=== PATIENT | female | born 1955 | race African-American/Black ===

== ENCOUNTER 2018-05-16 13:35 | Inpatient (IN) | payer MEDICAID ==
[~2018-05-16] VITALS: Ht 152.4 cm; Wt 63.5 kg
[~2018-05-16 13:35] MED LIST: ACET-2178 PO; AMLO5TAB4 PO; ARIP20TA2 PO; ASPI-1158 PO; ATOR20TA PO; DOCU-138 PO; FERR-63 PO; LAM25 PO; LEVO50TA PO
[2018-05-16 15:25] LABS: EOSINOPHILS % 2.4 % (0.0-5.0); HEMATOCRIT. 36.4 % (36.0-48.0); HEMOGLOBIN. 12.3 g/dL (12.0-16.0); LYMPHOCYTES % 46.5 % (20.0-50.0); MEAN CORPUSCULAR HEMOGLOBIN 30.1 pg (28.0-32.0); MEAN CORPUSCULAR VOLUME 88.8 fL (81.0-99.0); MONOCYTES % 4.4 % (2.0-8.0); NEUTROPHILS % 45.7 % (40.0-76.0); PLATELET 341 x1000/uL (130-400); RED CELL DISTRIBUTION WIDTH 13.9 % (11.6-14.6)
[2018-05-16 15:27] LABS: CHLORIDE 106 mEq/L (98-107)
[2018-05-16 15:29] LABS: INR 1.1; PROTHROMBIN TIME 10.7 sec (9.1-11.1)
[2018-05-16] MEDS ORDERED: SODIUM CHLORIDE 0.9% 1,000 ML IV ONE ×2 (16:01→17:48)
[2018-05-16 17:21] LABS: CLARITY URINE CLOUDY (CLEAR); COLOR URINE YELLOW (YELLOW); KETONES URINE TRACE (NEGATIVE); LEUKOCYTE ESTERASE URINE 2+ (NEGATIVE); NITRITE URINE NEGATIVE (NEGATIVE); OCCULT BLOOD URINE NEGATIVE (NEGATIVE); PROTEIN URINE NEGATIVE (NEGATIVE); SPECIFIC GRAVITY URINE 1.027 (1.005-1.030)
[2018-05-16] MEDS ORDERED: LEVOFLOXACIN 750MG PREMIX 150 ML IV ONE (17:45)
[2018-05-17] VITALS (8 sets, daily range): BP systolic 112–136; BP diastolic 53–65
[2018-05-17] MEDS ORDERED: ACETAMINOPHEN 325MG TABLET PO PRN (02:00)
[2018-05-17] MEDS ORDERED: DEXTROSE 50% WATER 50ML SYRINGE IV PRN (02:00)
[2018-05-17] MEDS: BLOOD SUGAR DIAGNOSTIC STRIP TEST SCH ×4 (05:43→20:56)
[2018-05-17] MEDS: INSULIN LISPRO 100 UNITS/ML SUBCUT SCH ×4 (05:50→20:55)
[2018-05-17] MEDS ORDERED: SODIUM CHLORIDE 0.9% INJ 3ML FLUSH IVF SCH (06:00)
[2018-05-17] MEDS: LEVOTHYROXINE SODIUM 50MCG TABLET PO SCH (08:02)
[2018-05-17] MEDS: ASPIRIN 81MG TABLET PO SCH (08:27)
[2018-05-17] MEDS: AMLODIPINE 5MG TABLET PO SCH (09:00)
[2018-05-17] MEDS ORDERED: ARIPIPRAZOLE 10MG TABLET PO SCH (09:00)
[2018-05-17 16:32] LABS: T4 FREE 1.08 ng/dL (0.76-1.46)
[2018-05-17] MEDS ORDERED: ATORVASTATIN CALCIUM 20MG TABLET PO SCH (21:00)
[2018-05-17] MEDS ORDERED: ENOXAPARIN 40MG/0.4ML SYR SUBCUT SCH (21:00)
[2018-05-17] MEDS ORDERED: LEVOFLOXACIN 250MG TABLET PO SCH (21:00)
[2018-05-17] MEDS ORDERED: LEVOFLOXACIN 500MG TABLET PO SCH (21:00)
[2018-05-17] MEDS ORDERED: DOCUSATE SODIUM 250MG CAPSULE PO SCH (21:00)
[2018-05-17] MEDS ORDERED: LAMOTRIGINE 25MG TABLET PO SCH (21:00)
[2018-05-18] VITALS: BP 128/61
[2018-05-18 04:00] VITALS: BP 133/61
[2018-05-18] MEDS: INSULIN LISPRO 100 UNITS/ML SUBCUT SCH (05:54)
[2018-05-18] MEDS: BLOOD SUGAR DIAGNOSTIC STRIP TEST SCH (05:54)
[2018-05-18] MEDS: LEVOTHYROXINE SODIUM 50MCG TABLET PO SCH (06:24)
[2018-05-18 08:00] VITALS: BP 130/62
[2018-05-18] MEDS: ASPIRIN 81MG TABLET PO SCH (10:24)
[2018-05-18] MEDS: AMLODIPINE 5MG TABLET PO SCH (10:27)
[2018-05-18 10:46] LABS: CHLORIDE 108 mEq/L (98-107)
[2018-05-18 10:47] LABS: BASOPHILS % 0.9 % (0.0-2.0); EOSINOPHILS % 2.7 % (0.0-5.0); HEMATOCRIT. 37.4 % (36.0-48.0); HEMOGLOBIN. 12.6 g/dL (12.0-16.0); LYMPHOCYTES % 44.4 % (20.0-50.0); MEAN CORPUSCULAR VOLUME 88.8 fL (81.0-99.0); MEAN PLATELET VOLUME 8.9 fl (7.4-10.4); MONOCYTES % 8.3 % (2.0-8.0); NEUTROPHILS % 43.7 % (40.0-76.0); PLATELET 228 x1000/uL (130-400); RED BLOOD CELL COUNT 4.22 mill/uL (4.2-5.4); RED CELL DISTRIBUTION WIDTH 13.6 % (11.6-14.6)
[2018-05-18 10:51] LABS: PHOSPHORUS 3.7 mg/dL (2.5-4.9)
[2018-05-18] MEDS ORDERED: LACTULOSE 20G/30ML UDC PO SCH (14:00)
[2018-05-18 14:57] LABS: *AMPHETAMINES SCREEN URINE NEGATIVE (NEGATIVE); *BARBITURATES SCREEN URINE NEGATIVE (NEGATIVE); *BENZODIAZEPINES SCREEN URINE NEGATIVE (NEGATIVE); *COCAINE SCREEN URINE NEGATIVE (NEGATIVE); METHADONE URINE SCREEN NEGATIVE (NEGATIVE)
[2018-05-18 14:59] LABS: CANNABINOID URINE SCREEN NEGATIVE (NEGATIVE); OPIATES URINE SCREEN NEGATIVE (NEGATIVE); PHENCYCLIDINE URINE SCREEN NEGATIVE (NEGATIVE)
== END 2018-05-18 11:45 | disposition left against medical advice (07) | DRG 720 ==
LOC: ER 14:21 → 8WST 18:17 → ENRESERV 21:56
PROVIDERS: ADMIT Internal Medicine; ATTEND Internal Medicine
DX: A41.9 Sepsis, unspecified organism (principal); E87.2 Acidosis; K56.7 Ileus, unspecified; F03.90 Unspecified dementia, unspecified severity, without behavioral disturbance, psychotic disturbance, mood disturbance, and anxiety; E11.9 Type 2 diabetes mellitus without complications; E66.9 Obesity, unspecified; N39.0 Urinary tract infection, site not specified; F17.210 Nicotine dependence, cigarettes, uncomplicated; F32.9 Major depressive disorder, single episode, unspecified; K59.00 Constipation, unspecified; E03.9 Hypothyroidism, unspecified; E87.6 Hypokalemia; I10 Essential (primary) hypertension; J44.9 Chronic obstructive pulmonary disease, unspecified; K21.9 Gastro-esophageal reflux disease without esophagitis; Z79.82 Long term (current) use of aspirin; Z79.899 Other long term (current) drug therapy; Z86.73 Personal history of transient ischemic attack (TIA), and cerebral infarction without residual deficits; Z88.8 Allergy status to other drugs, medicaments and biological substances; Z53.21 Procedure and treatment not carried out due to patient leaving prior to being seen by health care provider; Z68.27 Body mass index [BMI] 27.0-27.9, adult
CPT/HCPCS: 36415; 71045; 74018; 80048; 80305; 82962; 83036; 83605; 83735; 84100; 84145; 84439; 84443; 84484; 87077; 87186; 93005; 93306; 96360; 97162; 99285; J1650; J1956; J7030

== ENCOUNTER 2018-05-18 13:57 | Emergency (ER) | payer MEDICAID ==
[~2018-05-18] VITALS: Ht 152.4 cm; Wt 64.0 kg
[2018-05-18] MEDS ORDERED: ARIPIPRAZOLE 10MG TABLET PO ONE (15:30)
[2018-05-18 18:33] VITALS: BP 102/47
== END 2018-05-18 18:15 | disposition home or self-care (01) ==
LOC: ER 13:57
DX: R00.1 Bradycardia, unspecified (principal); E11.9 Type 2 diabetes mellitus without complications; I10 Essential (primary) hypertension; F31.9 Bipolar disorder, unspecified; F17.200 Nicotine dependence, unspecified, uncomplicated; Z88.8 Allergy status to other drugs, medicaments and biological substances; Z79.82 Long term (current) use of aspirin; Z86.73 Personal history of transient ischemic attack (TIA), and cerebral infarction without residual deficits
CPT/HCPCS: 82962; 99282

== ENCOUNTER 2021-07-23 13:07 | Inpatient (IN) | payer MEDICARE, MEDICAID ==
[~2021-07-23] VITALS: Ht 162.6 cm; Wt 68.7 kg
[~2021-07-23 13:07] MED LIST changes: -ACET-2178 PO; -ASPI-1158 PO; +ASPI-1406 PO; +TOPUD PO
[2021-07-23] MEDS ORDERED: SODIUM CHLORIDE 0.9% 1,000 ML IV ONE (16:15)
[2021-07-23] MEDS ORDERED: KETOROLAC 30MG/ML VIAL IV STA (16:15)
[2021-07-23] MEDS ORDERED: ONDANSETRON HCL 4MG/2ML INJ IV STA (17:46)
[2021-07-23] MEDS ORDERED: MORPHINE SULFATE 4 MG/ML CPJ (NOT FOR IM USE) IV STA (17:46)
[2021-07-23 18:08] LABS: CLARITY URINE CLEAR (CLEAR); COLOR URINE YELLOW (YELLOW); KETONES URINE TRACE (NEGATIVE); LEUKOCYTE ESTERASE URINE NEGATIVE (NEGATIVE); NITRITE URINE NEGATIVE (NEGATIVE); OCCULT BLOOD URINE NEGATIVE (NEGATIVE); PROTEIN URINE 1+ (NEGATIVE); SPECIFIC GRAVITY URINE 1.031 (1.005-1.030)
[2021-07-23 18:14] LABS: BASOPHILS % 0.6 % (0.0-2.0); EOSINOPHILS % 0.8 % (0.0-5.0); HEMATOCRIT. 38.7 % (36.0-48.0); HEMOGLOBIN. 12.6 g/dL (12.0-16.0); LYMPHOCYTES % 28.8 % (20.0-50.0); MEAN CORPUSCULAR HEMOGLOBIN 28.3 pg (28.0-32.0); MEAN CORPUSCULAR VOLUME 86.8 fL (81.0-99.0); MEAN PLATELET VOLUME 8.9 fl (7.4-10.4); MONOCYTES % 5.4 % (2.0-8.0); NEUTROPHILS % 64.4 % (40.0-76.0); PLATELET 267 x1000/uL (130-400); RED BLOOD CELL COUNT 4.46 mill/uL (4.2-5.4); RED CELL DISTRIBUTION WIDTH 14.4 % (11.6-14.6)
[2021-07-23 18:17] LABS: CHLORIDE 106 mEq/L (98-107)
[2021-07-24 06:16] VITALS: BP 129/61
[2021-07-24 08:00] VITALS: BP 143/61
[2021-07-24] MEDS ORDERED: DEXTROSE 50% WATER 50ML SYRINGE IV PRN ×2 (08:30→15:15)
[2021-07-24] MEDS ORDERED: HYDROCODONE/ACETAMINOPHEN 5/325MG TABLET PO PRN (08:30)
[2021-07-24] MEDS ORDERED: ENOXAPARIN 40MG/0.4ML SYR SUBCUT SCH (09:00)
[2021-07-24] MEDS ORDERED: QUET50TA PO (09:13)
[2021-07-24] MEDS ORDERED: BLOOD SUGAR DIAGNOSTIC STRIP TEST SCH (11:45)
[2021-07-24 12:00] VITALS: BP 153/68
[2021-07-24] MEDS: INSULIN LISPRO 100 UNITS/ML SUBCUT SCH ×3 (12:07→21:00)
[2021-07-24] MEDS ORDERED: CLONIDINE 0.1MG TABLET PO PRN (15:15)
[2021-07-24] MEDS ORDERED: MAGNESIUM/ALUMINUM HYDROXIDE/SIMETHICONE 30ML UDC PO PRN (15:15)
[2021-07-24] MEDS ORDERED: ACETAMINOPHEN 325MG TABLET PO PRN (15:15)
[2021-07-24] MEDS ORDERED: ONDANSETRON HCL 4MG/2ML INJ IV PRN (15:15)
[2021-07-24] MEDS: AMLODIPINE 5MG TABLET PO SCH (15:39)
[2021-07-24 16:00] VITALS: BP 149/58
[2021-07-24] MEDS: QUETIAPINE FUMARATE 50MG TABLET PO SCH (17:29)
[2021-07-24] MEDS: LAMOTRIGINE 25MG TABLET PO SCH (17:29)
[2021-07-24] MEDS: ENOXAPARIN 40MG/0.4ML SYR SUBCUT SCH (17:32)
[2021-07-24] MEDS: BLOOD SUGAR DIAGNOSTIC STRIP TEST SCH ×2 (17:32→21:00)
[2021-07-24 20:00] VITALS: BP 108/63
[2021-07-24] MEDS: ATORVASTATIN CALCIUM 20MG TABLET PO SCH (23:14)
[2021-07-24] MEDS: DOCUSATE SODIUM 250MG CAPSULE PO SCH (23:15)
[2021-07-25] VITALS: BP 140/58
[2021-07-25 04:00] VITALS: BP 144/60
[2021-07-25] MEDS: BLOOD SUGAR DIAGNOSTIC STRIP TEST SCH ×4 (07:26→20:14)
[2021-07-25] MEDS: OMEPRAZOLE 20MG CAPSULE EXTENDED RELEASE PO SCH (07:36)
[2021-07-25] MEDS: LEVOTHYROXINE SODIUM 50MCG TABLET PO SCH (07:36)
[2021-07-25 07:48] LABS: BASOPHILS % 0.7 % (0.0-2.0); EOSINOPHILS % 2.2 % (0.0-5.0); HEMATOCRIT. 37.3 % (36.0-48.0); HEMOGLOBIN. 12.4 g/dL (12.0-16.0); LYMPHOCYTES % 34.5 % (20.0-50.0); MEAN CORPUSCULAR HEMOGLOBIN 28.8 pg (28.0-32.0); MEAN CORPUSCULAR VOLUME 86.6 fL (81.0-99.0); MEAN PLATELET VOLUME 8.8 fl (7.4-10.4); MONOCYTES % 10.6 % (2.0-8.0); PLATELET 246 x1000/uL (130-400); RED BLOOD CELL COUNT 4.31 mill/uL (4.2-5.4); RED CELL DISTRIBUTION WIDTH 13.8 % (11.6-14.6)
[2021-07-25] MEDS: INSULIN LISPRO 100 UNITS/ML SUBCUT SCH ×4 (07:50→20:20)
[2021-07-25 07:54] LABS: CHLORIDE 107 mEq/L (98-107)
[2021-07-25 08:00] VITALS: BP 155/66
[2021-07-25 08:02] LABS: LDL CHOLESTEROL 83 mg/dL (5-100); PHOSPHORUS 2.8 mg/dL (2.5-4.9)
[2021-07-25 08:04] LABS: HDL CHOLESTEROL 59 mg/dL (40-59); T4 FREE 0.88 ng/dL (0.76-1.46)
[2021-07-25] MEDS: AMLODIPINE 5MG TABLET PO SCH (08:35)
[2021-07-25] MEDS: LAMOTRIGINE 25MG TABLET PO SCH ×2 (08:35→17:40)
[2021-07-25] MEDS: ASPIRIN 81MG EC TABLET PO SCH (08:36)
[2021-07-25] MEDS: QUETIAPINE FUMARATE 50MG TABLET PO SCH ×2 (08:36→17:40)
[2021-07-25 12:00] VITALS: BP_SYST 107; BP_SYST 125; BP_DIAS 61; BP_DIAS 64
[2021-07-25] MEDS ORDERED: NALOXONE HCL 0.4MG/ML VIAL IV PRN (14:30)
[2021-07-25 16:00] VITALS: BP 125/64
[2021-07-25] MEDS: ENOXAPARIN 40MG/0.4ML SYR SUBCUT SCH (17:41)
[2021-07-25 20:00] VITALS: BP 100/56
[2021-07-25] MEDS: DOCUSATE SODIUM 250MG CAPSULE PO SCH (20:14)
[2021-07-25] MEDS: ATORVASTATIN CALCIUM 20MG TABLET PO SCH (20:14)
[2021-07-26] VITALS: BP 128/87
[2021-07-26 04:00] VITALS: BP 129/52
[2021-07-26] MEDS: OMEPRAZOLE 20MG CAPSULE EXTENDED RELEASE PO SCH (06:26)
[2021-07-26] MEDS: LEVOTHYROXINE SODIUM 50MCG TABLET PO SCH (06:26)
[2021-07-26] MEDS: BLOOD SUGAR DIAGNOSTIC STRIP TEST SCH ×4 (06:26→20:37)
[2021-07-26] MEDS: INSULIN LISPRO 100 UNITS/ML SUBCUT SCH ×4 (07:50→20:52)
[2021-07-26 08:00] VITALS: BP 127/62
[2021-07-26] MEDS: ASPIRIN 81MG EC TABLET PO SCH (09:35)
[2021-07-26] MEDS: QUETIAPINE FUMARATE 50MG TABLET PO SCH ×2 (09:35→18:13)
[2021-07-26] MEDS: LAMOTRIGINE 25MG TABLET PO SCH ×2 (09:35→18:13)
[2021-07-26] MEDS: AMLODIPINE 5MG TABLET PO SCH (09:36)
[2021-07-26 12:00] VITALS: BP 120/54
[2021-07-26 16:00] VITALS: BP 118/55
[2021-07-26] MEDS: ENOXAPARIN 40MG/0.4ML SYR SUBCUT SCH (18:14)
[2021-07-26 20:00] VITALS: BP 102/55
[2021-07-26] MEDS: ATORVASTATIN CALCIUM 20MG TABLET PO SCH (20:37)
[2021-07-26] MEDS: DOCUSATE SODIUM 250MG CAPSULE PO SCH (20:37)
[2021-07-27] VITALS: BP 106/53
[2021-07-27 04:00] VITALS: BP 101/56
[2021-07-27] MEDS: OMEPRAZOLE 20MG CAPSULE EXTENDED RELEASE PO SCH (06:25)
[2021-07-27] MEDS: LEVOTHYROXINE SODIUM 50MCG TABLET PO SCH (06:25)
[2021-07-27] MEDS: BLOOD SUGAR DIAGNOSTIC STRIP TEST SCH ×4 (06:25→20:38)
[2021-07-27] MEDS: INSULIN LISPRO 100 UNITS/ML SUBCUT SCH ×4 (07:26→20:39)
[2021-07-27 08:00] VITALS: BP 119/53
[2021-07-27] MEDS: ASPIRIN 81MG EC TABLET PO SCH (08:32)
[2021-07-27] MEDS: LAMOTRIGINE 25MG TABLET PO SCH ×3 (08:32→16:48)
[2021-07-27] MEDS: AMLODIPINE 5MG TABLET PO SCH (08:32)
[2021-07-27] MEDS: QUETIAPINE FUMARATE 50MG TABLET PO SCH ×3 (08:32→16:48)
[2021-07-27 12:00] VITALS: BP 113/53
[2021-07-27 16:00] VITALS: BP 104/55
[2021-07-27] MEDS: ENOXAPARIN 40MG/0.4ML SYR SUBCUT SCH (16:39)
[2021-07-27 20:00] VITALS: BP 120/60
[2021-07-27] MEDS: ATORVASTATIN CALCIUM 20MG TABLET PO SCH (20:39)
[2021-07-27] MEDS: DOCUSATE SODIUM 250MG CAPSULE PO SCH (20:45)
[2021-07-28] VITALS: BP 130/59
[2021-07-28 04:00] VITALS: BP 143/60
[2021-07-28] MEDS: LEVOTHYROXINE SODIUM 50MCG TABLET PO SCH (06:23)
[2021-07-28] MEDS: BLOOD SUGAR DIAGNOSTIC STRIP TEST SCH ×3 (06:23→16:44)
[2021-07-28] MEDS: OMEPRAZOLE 20MG CAPSULE EXTENDED RELEASE PO SCH (06:23)
[2021-07-28] MEDS: INSULIN LISPRO 100 UNITS/ML SUBCUT SCH ×3 (07:45→16:44)
[2021-07-28 08:00] VITALS: BP 133/75
[2021-07-28] MEDS: LAMOTRIGINE 25MG TABLET PO SCH ×2 (08:29→18:18)
[2021-07-28] MEDS: ASPIRIN 81MG EC TABLET PO SCH (08:29)
[2021-07-28] MEDS: AMLODIPINE 5MG TABLET PO SCH (08:30)
[2021-07-28] MEDS: QUETIAPINE FUMARATE 50MG TABLET PO SCH ×2 (08:30→18:18)
[2021-07-28] MEDS ORDERED: DOCUSATE SODIUM SUGAR FREE 100MG/10ML UDC NG SCH (09:00)
[2021-07-28 12:24] VITALS: BP 135/67
[2021-07-28 14:52] VITALS: BP 135/67
[2021-07-28 16:00] VITALS: BP 119/59
[2021-07-28] MEDS: ENOXAPARIN 40MG/0.4ML SYR SUBCUT SCH (18:19)
== END 2021-07-28 20:15 | DRG 347 ==
LOC: ER 13:13 → EDBEDREQTM 19:39 → EDBEDREQ 19:39 → MICUSO 22:34 → 5WST 07-24 03:45 → 6EST 07-24 15:55
PROVIDERS: ADMIT Internal Medicine; ATTEND Internal Medicine
DX: S32.010A Wedge compression fracture of first lumbar vertebra, initial encounter for closed fracture (principal); D64.9 Anemia, unspecified; E11.9 Type 2 diabetes mellitus without complications; E03.9 Hypothyroidism, unspecified; E78.5 Hyperlipidemia, unspecified; J44.9 Chronic obstructive pulmonary disease, unspecified; R26.89 Other abnormalities of gait and mobility; F31.9 Bipolar disorder, unspecified; F17.200 Nicotine dependence, unspecified, uncomplicated; Z20.822 Contact with and (suspected) exposure to COVID-19; Z86.73 Personal history of transient ischemic attack (TIA), and cerebral infarction without residual deficits; W01.0XXA Fall on same level from slipping, tripping and stumbling without subsequent striking against object, initial encounter; Y93.89 Activity, other specified; Y92.89 Other specified places as the place of occurrence of the external cause; Y99.8 Other external cause status; Z88.8 Allergy status to other drugs, medicaments and biological substances; Z79.899 Other long term (current) drug therapy; Z79.82 Long term (current) use of aspirin; I10 Essential (primary) hypertension
CPT/HCPCS: 36415; 71045; 72131; 80048; 80053; 80061; 80076; 81003; 82962; 83036; 83735; 84100; 84439; 84443; 85025; 87426; 93005; 93970; 99285; J1650; J1815; J1885; J2270; J2405; J7030